=== PATIENT | male | born 1955 | race Caucasian/White ===

== ENCOUNTER → 2020-03-18 13:51 | Outpatient (BNVA) | payer MEDICARE, MEDICAID, SELFPAY | PROVIDERS: PCP Family Medicine; Visit Provider Family Medicine | DX: K62.5 Hemorrhage of anus and rectum (principal); N49.2 Inflammatory disorders of scrotum; R19.7 Diarrhea, unspecified | CPT/HCPCS: G0328 ==

== ENCOUNTER → 2020-03-30 14:33 | Outpatient (BNVA) | payer MEDICARE, SELFPAY | PROVIDERS: PCP Family Medicine; Visit Provider Nurse Practitioner Family | DX: R10.9 Unspecified abdominal pain (principal); R14.0 Abdominal distension (gaseous) | CPT/HCPCS: 74018; 80053; 81000; 85025 ==

== ENCOUNTER 2020-04-02 12:40 | Outpatient (CLI) | payer MEDICARE, SELFPAY ==
--- NOTE | 2020-04-02 12:49 | XRR_ITS ---
PROCEDURE INFORMATION: Exam: XR Left Ribs Exam date and time: 04/02/2020 12:49 PM Age: 64 years old Clinical indication: Prior surgery; Surgery type: Gb, pacemaker, stents; Patient HX: Left rib pain, mid to lower posterior, felt pop while stretching and lifting an object; Additional info: Rib pain, pop noise in rib TECHNIQUE: Imaging protocol: XR Left ribs. Views: 2 views. COMPARISON: No relevant prior studies available. FINDINGS: Tubes, catheters and devices: Pacemaker Bones/joints: Degenerative changes left glenohumeral joint. Rather severe. No clearly visualized rib fracture. Pacemaker limits this exam slightly. Soft tissues: Normal. XR/XR ribs LT 2V* [id number] IMPRESSION: No clearly visualized rib fracture. Pacemaker limits this exam slightly.
== END 2020-04-02 12:41 | disposition home or self-care (01) ==
LOC: RADWPI 12:46
PROVIDERS: PCP Family Medicine; Visit Provider Nurse Practitioner Family
DX: R07.81 Pleurodynia (principal)
CPT/HCPCS: 71100

== ENCOUNTER → 2020-05-17 12:30 | Outpatient (BNVA) | payer MEDICARE, MEDICAID, SELFPAY | PROVIDERS: PCP Family Medicine; Referring Provider Nurse Practitioner Family; Visit Provider Internal Medicine Cardiovascular Disease | DX: E78.5 Hyperlipidemia, unspecified (principal); I11.0 Hypertensive heart disease with heart failure; I50.33 Acute on chronic diastolic (congestive) heart failure; R06.02 Shortness of breath; I35.0 Nonrheumatic aortic (valve) stenosis; I25.5 Ischemic cardiomyopathy; I25.10 Atherosclerotic heart disease of native coronary artery without angina pectoris; I48.91 Unspecified atrial fibrillation; Z95.810 Presence of automatic (implantable) cardiac defibrillator; F17.210 Nicotine dependence, cigarettes, uncomplicated | CPT/HCPCS: 80048; 80061; 80076; 83880; 84439; 84443 ==

== ENCOUNTER 2020-06-01 15:06 | Outpatient (CLI) | payer MEDICARE, SELFPAY ==
--- NOTE | 2020-06-01 15:14 | USCV_ITS ---
Italo Ruht Age: 64 Gender: M : 1955 Exam Date: 06/01/2020 15:32 Ordering Phys: Juan Cagle MD ([email or web address]) Technologist: Ruby Man [place] [facility] [place]ication: CARDIOMYOPATHY BP: / HR: 67 Rhythm: Sinus Technical Quality: Adequate MEASUREMENTS (Male / Female) Normal Values 2D ECHO LV Diastolic Diameter PLAX 6.3 cm 4.2 - 5.9 / 3.9 - 5.3 cm LV Systolic Diameter PLAX 5.9 cm LV Chamber Size 4.6 cm IVS Diastolic Thickness 1.7 cm 0.6 - 1.0 / 0.6 - 0.9 cm IVS Systolic Thickness 2.3 cm LVPW Diastolic Thickness 1.2 cm 0.6 - 1.0 / 0.6 - 0.9 cm LVPW Systolic Thickness 1.1 cm RV Chamber Size 3.1 cm LVOT Diameter 2.1 cm LV Ejection Fraction 2D Teich 12.9 % LV Ejection Fraction MOD 2C 37.7 % LV Ejection Fraction 2C AL 38.9 % LA Diameter 4.7 cm LA Width 3.1 cm LA Height 4.5 cm RA Width 3.0 cm RA Height 3.9 cm Aorta at Sinotubular Diameter 3.5 cm M-MODE LV Diastolic Diameter MM 6.9 cm 4.2 - 5.9 / 3.9 - 5.3 cm LV Systolic Diameter MM 6.0 cm LV Ejection Fraction MM Teich 26.6 % IVS Diastolic Thickness MM 0.9 cm 0.6 - 1.0 / 0.6 - 0.9 cm IVS Systolic Thickness MM 1.2 cm LVPW Diastolic Thickness MM 1.3 cm 0.6 - 1.0 / 0.6 - 0.9 cm LVPW Systolic Thickness MM 1.5 cm RV Diastolic Diameter MM 0.8 cm Aortic Annulus Diameter 3.5 cm LA Ao Ratio MM 1.3 MV E Point Septal Separation 1.1 cm DOPPLER AV Peak Velocity 125.0 cm/s LVOT Peak Velocity 60.0 cm/s AV Area Cont Eq vti 1.7 cm squared AV Area Cont Eq pk 1.6 cm squared MV Area PHT 4.2 cm squared Mitral E to A Ratio 0.6 MV E' Velocity 6.0 cm/s Mitral E to MV E' Ratio 6.7 Mitral E to LV E' Lateral Ratio 6.4 Mitral E to LV E' Septal Ratio 7.2 TR Peak Velocity 242.5 cm/s TR Peak Gradient 23.5 mmHg TR Mean Velocity 154.1 cm/s TR Mean Gradient 11.2 mmHg TR Velocity Time Integral 43.0 cm TV Peak E Velocity 52.0 cm/s Right Atrial Pressure 3.0 mmHg Pulmonary Artery Systolic Pressu 26.5 mmHg PV Peak Velocity 77.0 cm/s RV Acceleration Time 0.1 s RV Ejection Time 0.3 s RV AcT/ET 0.3 FINDINGS Left Ventricle Severe diffuse hypokinesia of the left ventricle with ejection fraction around 25 to 30%. Mildly dilated left ventricle Right Ventricle Normal RV size with a slightly diminished ejection fraction Right Atrium The right atrium is normal in size. Left Atrium Mildly increased left atrial size. Mitral Valve Thickened mitral valve. Mild mitral annular calcification. Mild mitral valve regurgitation. Aortic Valve Thickened aortic valve. Tricuspid Valve Trace tricuspid valve regurgitation. Pulmonic Valve Pulmonic valve not well visualized. Pericardium Normal pericardium without effusion. Aorta Normal ascending aorta dimension. CONCLUSIONS Severe diffuse hypokinesia of the left ventricle with ejection fraction around 25 to 30%. Mildly dilated LV cavity. Mildly increased left atrial size. Thickened mitral valve. Mild mitral annular calcification. Mild mitral valve regurgitation. Thickened aortic valve. Trace tricuspid valve regurgitation. There is no pericardial effusion. There are no intracardiac masses. Compared to the previous study from 11/30/2015, there is worsening of the LV systolic function Dr Juan Cagle MD [facility] (Electronically Signed) Final Date: 02 June 2020 00:02 S
== END 2020-06-01 15:07 | disposition home or self-care (01) ==
PROVIDERS: PCP Family Medicine; Visit Provider Internal Medicine Cardiovascular Disease
DX: I25.5 Ischemic cardiomyopathy (principal); I08.3 Combined rheumatic disorders of mitral, aortic and tricuspid valves
CPT/HCPCS: 93306

== ENCOUNTER 2020-06-04 09:49 | Outpatient (CLI) | payer MEDICARE, SELFPAY ==
--- NOTE | 2020-06-04 09:51 | CT_ITS ---
WS: [id number] LDCT LUNG CANCER SCREENING TECHNIQUE: Noncontrast CT of the chest with coronal and sagittal reformatted images. CLINICAL INFORMATION: HX OF TOBACCO USE COMPARISON: None. DLP: 55.27 mGy.cm DIvol: 1.[address] scans at [facility] use at least one of these dose optimization techniques: automat ed exposure control; mA and/or kV adjustment per patient size (includes targeted exams where dose is matched to clinical indication); or iterative reconstruction. FINDINGS: Some images degraded by motion. Mild chronic emphysematous changes. No acute pulmonary infiltrates. Slight atelectasis in the lung ba ses. No mediastinal or hilar lymphadenopathy. Coronary calcification. No axillary lymphadenopathy. Ad renal glands are normal. Small esophageal hiatal hernia. Hypertrophic changes thoracic spine. CT/CT lung screening [id number] IMPRESSION: LUNG-RADS: 1-Negative FOLLOW UP: 12 Month: Continue annual screening with LDCT
== END 2020-06-04 09:50 | disposition home or self-care (01) ==
LOC: CT 09:50
PROVIDERS: PCP Family Medicine; Visit Provider Nurse Practitioner Family
DX: Z12.2 Encounter for screening for malignant neoplasm of respiratory organs (principal); Z87.891 Personal history of nicotine dependence
CPT/HCPCS: G0297

== ENCOUNTER → 2020-11-22 09:17 | Outpatient (BNVA) | payer MEDICARE, MEDICAID, SELFPAY | PROVIDERS: PCP Family Medicine; Visit Provider Nurse Practitioner Family | DX: E78.5 Hyperlipidemia, unspecified (principal); I25.10 Atherosclerotic heart disease of native coronary artery without angina pectoris; I25.5 Ischemic cardiomyopathy; I48.91 Unspecified atrial fibrillation; Z95.810 Presence of automatic (implantable) cardiac defibrillator | CPT/HCPCS: 80048; 83880 ==

== ENCOUNTER → 2020-12-07 09:00 | Outpatient (BNVA) | payer MEDICARE, MEDICAID, SELFPAY | PROVIDERS: PCP Family Medicine; Visit Provider Internal Medicine Cardiovascular Disease | DX: I25.5 Ischemic cardiomyopathy (principal); R79.89 Other specified abnormal findings of blood chemistry; E78.5 Hyperlipidemia, unspecified; I25.10 Atherosclerotic heart disease of native coronary artery without angina pectoris; I10 Essential (primary) hypertension | CPT/HCPCS: 80048; 83880 ==

== ENCOUNTER → 2021-04-28 15:15 | Outpatient (BNVA) | payer MEDICARE, MEDICAID, SELFPAY | PROVIDERS: PCP Family Medicine; Visit Provider Internal Medicine Cardiovascular Disease | DX: E78.5 Hyperlipidemia, unspecified (principal); I50.33 Acute on chronic diastolic (congestive) heart failure; R06.02 Shortness of breath; Z95.0 Presence of cardiac pacemaker; I35.0 Nonrheumatic aortic (valve) stenosis; I25.5 Ischemic cardiomyopathy; I25.10 Atherosclerotic heart disease of native coronary artery without angina pectoris; R07.9 Chest pain, unspecified | CPT/HCPCS: 80048; 83880 ==

== ENCOUNTER → 2021-05-12 13:28 | Outpatient (BNVA) | payer MEDICARE, MEDICAID, SELFPAY | PROVIDERS: PCP Family Medicine; Visit Provider Nurse Practitioner Family | DX: I48.91 Unspecified atrial fibrillation (principal); I10 Essential (primary) hypertension; I25.10 Atherosclerotic heart disease of native coronary artery without angina pectoris; E78.5 Hyperlipidemia, unspecified; Z95.0 Presence of cardiac pacemaker; L72.9 Follicular cyst of the skin and subcutaneous tissue, unspecified; Z68.36 Body mass index [BMI] 36.0-36.9, adult | CPT/HCPCS: 80053; 80061; 83735; 84439; 84443; 85025 ==

== ENCOUNTER 2021-06-03 07:09 | Outpatient (CLI) | payer MEDICARE, SELFPAY ==
[2021-06-03 07:30] VITALS: BMI 36.2
--- NOTE | 2021-06-03 07:30 | ECG_ITS ---
[facility] Test Date: 2021-06-03 Pat Name: Italo Ruth Department: Room: Gender: Male Insurance Underwriter: : 1955 Requested By: Juan Cagle Order Number: [id number] Abraham MD: Juan Cagle M.D. Interpretive Statements NAME OF STUDY: LEXISCAN SESTAMIBI STRESS TEST INDICATION: Heart disease, PROCEDURE: At the baseline, the EKG revealed normal sinus rhythm with diffuse nonspecific T wave changes. Features of old inferior wall myocardial infarction.. The baseline blood pressure was 144/83 mm Hg with a heart rate of 62 beats/min. Lexiscan was infused over a period of 20 seconds. A total of 0.4 milligrams of Lexiscan was infused. The stress phase was continued for a total of 5 minutes. Heart rate at the end of the stress phase was 72 with a blood pressure 103/77. The EKG at the peak infusion revealed no significant changes. Sestamibi was injected 20 seconds after the Lexiscan infusion. Blood pressure at the end of the recovery phase was 119/64 with a heart rate of 70 per minute. CONCLUSION: 1. No significant EKG changes with the LexiScan infusion 2. No LexiScan induced chest pain or cardiac arrhythmia 3. Normal blood pressure and heart rate response 4. Sestamibi/sestamibi perfusion scan pending; see separate report. Electronically Signed On 06-03-2021 17:01:47 CDT by Juan Cagle M.D. [id number]
--- NOTE | 2021-06-03 07:30 | NMCV_ITS ---
NM chas perf SPECT r/s* [id number] Italo Ruth Age: 65 Gender: M : 1955 Exam Date: 06/03/2021 08:20 Ordering Phys: Juan Cagle MD ([email or web address]) Technologist: GORGE Tyler Exam Location: [facility] Indications: HEART DISEASE STRESS TEST Please see separate stress test report in [facility] for full findings IMAGE PROTOCOL Rest/Stress 1 Lexiscan Day Radiopharmaceutical Dose (mCi) Administration Site Administered by Rest: Tc-99m 10.6 IV GORGE [place] Sestamibi Stress:Tc-99m 32.7 IV GORGE [place] Sestamibi Rest: 03-Jun-2021 60 Discovery 630 Stress: 03-Jun-2021 30 Discovery 630 0.4mg Lexiscan. Images obtained in supine and prone position. SPECT RESULTS Technical Quality: Excellent Raw Data Analysis: Normal Image Corrections: No attenuation or motion correction applied Summed Stress Score: 31 Summed Rest Score: 24 Summed Difference Score: 7 PERFUSION FINDINGS Area of severely decreased tracer uptake in the basal, mid and apical inferior, basal and mid inferolateral, basal and mid inferoseptal, basal anterolateral, apical lateral, apical septal and LV apex. Subtle areas of reversibility was noted in the inferolateral, basal anterolateral and apical segments. FUNCTIONAL RESULTS (calculated via Gated SPECT) Stress Image LV EF (%): 14 Stress EDV (mL):221 TID: 1.05 Stress ESV (mL):190 FUNCTIONAL FINDINGS: Segmental wall motion analysis revealed severe diffuse hypokinesia of the anterior wall, apex, septum and moderate hypokinesia of the inferior wall segments. IMPRESSIONS 1. Myocardial perfusion imaging revealing large areas of severely decreased tracer uptake in the inferior, inferolateral, inferoseptal, apical and the basal anterolateral regions with significant reversibility in the distribution of all the 3 coronary arteries, predominantly in the distribution of the left circumflex artery. 2. Markedly diminished LV ejection fraction of 14%. 3. Multiple wall motion normalities as mentioned above. 4. Markedly dilated LV cavity with an end-systolic volume of 190 mL No similar previous studies are available for comparison Dr Juan Cagle MD [facility] (Electronically Signed) Final Date: 03 June 2021 15:33 S
[2021-06-03] MEDS: regadenoson 0.4 Mg/5 ml Syringe IVP (09:10)
[2021-06-03 09:16] VITALS: BP 119/69; PULSE 69
== END 2021-06-03 07:10 | disposition home or self-care (01) ==
PROVIDERS: PCP Family Medicine; Visit Provider Internal Medicine Cardiovascular Disease
DX: I51.9 Heart disease, unspecified (principal)
CPT/HCPCS: 78452; 93017; A9500; J2785

== ENCOUNTER → 2021-07-08 09:03 | Outpatient (BNVA) | payer MEDICARE, SELFPAY | PROVIDERS: PCP Family Medicine; Visit Provider Internal Medicine Cardiovascular Disease | DX: Z01.818 Encounter for other preprocedural examination (principal); R94.39 Abnormal result of other cardiovascular function study; I48.91 Unspecified atrial fibrillation; I10 Essential (primary) hypertension; I25.10 Atherosclerotic heart disease of native coronary artery without angina pectoris; Z95.0 Presence of cardiac pacemaker; Z20.822 Contact with and (suspected) exposure to COVID-19 | CPT/HCPCS: 80048; 85025; 85610; 86850; 86900; 87635 ==

== ENCOUNTER 2021-07-13 07:49 | Outpatient (CLI) | payer MEDICARE, SELFPAY ==
[2021-07-13] VITALS (18 sets, daily range): BP systolic 86–116; BP diastolic 62–83; PULSE 63–70; RESP 10–21; TEMP 36.1; O2SAT 91–97; BMI 35.8
--- NOTE | 2021-07-13 07:30 | XACV_ITS ---
Exam Room: 1 Ht: 180 cm Wt: 117 kg BSA: 2.46 m2 Gender: Male : 1955 Any Known Allergies: Codeine Exam Priority: Routine Procedure(s): Procedure Description: Diagnostic procedure Procedure Description: Left Heart Catheterization Procedure Description: Coronary Angiography Diagnostic Cath Status: Elective Diagnostic Findings * Coronary angiography shows right dominance. * The left main is a medium caliber vessel with no significant stenotic lesions. * The left anterior descending artery is a medium caliber vessel which was found to have minimal diffuse irregular narrowing proximally. The mid and the distal LAD also were found to have minimal intimal irregularities with no significant stenotic lesions. The first diagonal branch was found to have a proximal stented segment. Mild diffuse in-stent narrowing was noted in this region. No other significant stenotic lesions. * The left circumflex artery is a medium to large caliber vessel. The proximal stented segment was found to be widely patent with minimal in-stent narrowing. The medium to large caliber first obtuse marginal artery was found to have very minimal intimal irregularities with no significant stenotic lesions. The mid circumflex artery right after the first obtuse marginal artery was found to be totally occluded. Grade 2 left to left collaterals were noted. * The right coronary artery is a medium to large caliber vessel with mild diffuse disease in the proximal segment. Right after the first RV branch, the artery appears to be totally occluded. This appears to be a chronic occlusion. * Intermedius artery appears to be totally occluded proximally. Left to left collaterals were noted with relatively small branches of the intermedius artery. Conclusions 1. 65-year-old white male with a history of myocardial infarction and multiple PCI's, now presenting with increasing shortness of breath/weakness and some atypical chest symptoms. Myocardial perfusion may revealing areas of fixed defects with a small areas of reversible defects in the distribution of all the 3 coronary arteries. In view of the abnormal perfusion scan findings and the patients ongoing symptoms with the worsening of the exercise tolerance, in order to further evaluate his coronary status, a repeat cardiac catheterization was recommended. Patient underwent left heart catheterization with left and right coronary angiogram today. The findings are as follows. 2. Left main was found to have no significant lesions. Mild diffuse disease in the left anterior descending artery with a patent stent at the mid segment. Minimal in-stent narrowing. The circumflex artery was found to have a patent stented segment proximally. Mild diffuse disease was noted in the first obtuse marginal artery. The mid circumflex appears to be totally occluded. Grade 2 left to left collaterals were noted. The intermedius artery also was found to be totally occluded with some left to left collaterals. Right coronary artery was found to be totally occluded at the mid segment. Grade 1-2 [id number] collaterals are noted.. Recommendations * Continue current medical management and risk factor modification. Diagnostic RX Recommendation: medical therapy and/or counseling Left Ventriculography Findings: * LV gram was not performed because of the concern about the dye overload. LVEDP was around 18 mmHg. Pressures Phase:Rest AO : 109 / 71 ( 88 ) @ 8:18:00 AM 101 / 68 ( 82 ) @ 8:18:00 AM LV : 101 / 11 / 19 @ 8:16:00 AM 99 / 9 / 18 @ 8:16:00 AM 103 / 14 / 23 @ 8:17:00 AM 104 / 11 / 24 @ 8:18:00 AM Valves Phase:DefaultPhase AV : 0.0 @ 9:31:57 AM AV Mean Gradient: 0.0 @ 9:31:57 AM Clinical Evaluation EBL: 5mL-10mL Procedural Details Procedure Consent Obtained. Identified patient by full name and date of as verbalized by the patient/guarantor. Does the consent match the physician's order: Yes. Accurate & Complete Informed Consent: Yes. Inpatient/Outpatient History & Physical on Chart: Yes. If H&P is completed, is and addenduem needed: No. Relevant Radiology Images available: Yes. Pre-op teaching completed and patient verbalized understanding. The risks, benefits, and alternatives of sedation and/or procedure were discussed by physician. The patient agrees to continue. Procedure started. [facility] Clinical Fraility Score: 4: Vulnerable. Glue Maker Bone Indications: LV Dysfunction, abnormal stress test. Chest Pain Symptom Assessment: Atypical Angina. Cardiovascular Instability: no. Correct patient, site and procedure confirmed by cath team. PERRLA. Strong, equal hand installer apprentice bilaterally. Lungs clear x 5 lobes. IV Site on Arrival: 20 gauge in the left anticubital. Pre Procedural Pulses: right radial was 1+. Pre Procedural Pulses: bilateral dorsalis pedis was 1+. Pre Procedural Pulses: bilateral posterior tibial was Doppled. IV Fluids: 0.9% NaCl at KVO. 0 mL infused prior to laborer plumbing. Oxygen started at 2liters/min via nasal canula. right radial was prepped with chloroprep then draped in the usual sterile fashion. right groin was prepped with chloroprep then draped in the usual sterile fashion. Physician notified. Baseline sample Acquired. HR: 31 BPM. Equipment: 6F - Radial. Cardiac Cath Pack. ACIST Manifold Kit Model BT 2000. Heparinized Saline (2 units/mL), 1000 mL bag. Physician arrived. Physician scrubbed in. Immediate Pre-Procedure Time Out. Correct Patient: Yes; Correct Procedure: Yes; Correct Site: Yes; Correct Patient Position: Yes; Correct Supplies: Yes; Dried Flammable Prep: Yes; Blood Products Available: N/A;. Lidocaine 1% infiltrated to the right radial. Arterial access obtained. A 6 nauruan Curtis catheter in over wire. Multiple views taken of left coronary artery. Catheter redirected to the RCA. Catheter removed over the exchange wire. A 5 nauruan JR4 catheter in over wire. Multiple views taken of right coronary artery. Catheter removed over the exchange wire. A 5 nauruan Angled Pig catheter in over wire. EDP Sample taken: LV 101/11,19; HR: 83 BPM; SpO2: 100%. EDP Sample taken: LV 99/9,18; HR: 75 BPM; SpO2: 100%. EDP Sample taken: LV 103/14,23; HR: 87 BPM; SpO2: 99%. Pullback taken: LV 104/11,24; AO 109/71(88); Mean: 0mmHg, Peak to Peak: 0mmHg, SEP: 9sec/min; HR: 76 BPM; SpO2: 99%. Catheter removed over the exchange wire. Physician scrubbed out. TR band placed. Hemostasis obtained. Post Procedure: Pulses reassessed and unchanged. PERRLA. Strong, equal hand installer apprentice bilaterally. No VTE prophylaxis required. Medication's Wasted: Lidocaine 1% = 18 mL. Medication's Wasted: Nitro = 49.8 mg. Medication's Wasted: Heparin = 1000 u. Medication's Wasted: Other = fentanyl mL. Medication's Wasted: Verapamil = 5 mg. Total IV fluids: 221 mL. Contrast type used: Omnipaque 300 mgI/mL, 500 mL bottle. Post-op diagnosis: cardiomyopathy. Complications: none. Estimated blood loss: 5mL-10mL. A TR Band was successful obtaining hemostatsis at the Right Radial artery insertion site. Patient transferred by wheelchair to CPRU. Procedure completed. Vital chart was stopped. Access Site Site: Right Radial artery Sheath Size: 6 Fr Hemostasis Method: TR Band Hemostasis Success: Successful Procedure Medications Start: 8:57 AM Stop: 8:57 AM Medication: Versed Amount: 1 mg Route: I.V. Start: 8:57 AM Stop: 8:57 AM Medication: Fentanyl Amount: 25 mcg Route: I.V. Start: 9:00 AM Stop: 9:00 AM Medication: 0.9% Saline Amount: 250 ml Route: I.V. bolus Start: 9:02 AM Stop: 9:02 AM Medication: Nitrogylcerin Amount: 200 mcg Route: I.A. Start: 9:06 AM Stop: 9:06 AM Medication: Heparin Amount: 5000 units I, the attending physician, have reviewed and verified all procedure medications. Yes, all medications given per verbal order History/Risk Factors Hypertension: Yes Dyslipidemia: Yes Peripheral Arterial Disease (PAD): No Myocardial Infarction (AL): Yes Obesity: Yes Renal Disease: No Tobacco Use: Current/Recent(w/in 1 year) Prior Interventions PCI: Yes CABG: No Valve Surgery: No Report Signatures Finalized by Dr Juan Cagle MD [facility] on 07/13/2021 05:50 PM
--- NOTE | 2021-07-13 08:35 | W.PM.OPSUD ---
Surgery/Procedure H&P Update DATE OF PROCEDURE: July 13, 2021 DATE H&P PERFORMED: 06/13/21 H&P UPDATE INFORMATION: I have reviewed H&P completed within last 30 days, I have examined patient prior to procedure and No changes to prior documentation PREOP DIAGNOSIS: ASHD PRIMARY INDICATION FOR PROCEDURE: Abnormal myocardial perfusion imaging suggesting ischemia in the distribution of all the 3 coronary arteries; history of PCI of the LAD and circumflex artery PLANNED PROCEDURE: Operation Date: 07/13/21 08:30 Proposed Procedures p Cardiac Catheterization(Left) - Juan Cagle MD PATIENT REASSESSED PRIOR TO SEDATION, WITH NO CHANGE NOTED: Yes PHYSICAL EXAM: alert, oriented x 3, clear to auscultation bilaterally and regular rate & rhythm AIRWAY EVAL/ANESTHESIA PLAN: normal airway, see other exam findings, ASA II, ASA III, Monitored Anesthesia, Local Anesthesia, Risks, benefits & alternatives of sedation and/or procedure discussed and Patient agrees to continue as planned
--- NOTE | 2021-07-13 09:30 | PC.NURSE ---
recovery received pt from central lab technician post diagnostic [facility]. pt alert and oriented x3. tr band in place on right wrist with no hematoma or bleeding noted. distal pulse palpable. pt placed on vitals machine and will be monitored per protocol. pt complains of no pain. pt educated on restrictions of right wrist and acknowledged understanding. will reeducate pt throughout recovery as well. will plan to dc in 3 hrs if tr band removes well.
== END 2021-07-13 13:34 | disposition home or self-care (01) ==
PROVIDERS: PCP Family Medicine; Visit Provider Internal Medicine Cardiovascular Disease
DX: I25.10 Atherosclerotic heart disease of native coronary artery without angina pectoris (principal); I25.82 Chronic total occlusion of coronary artery; Z95.5 Presence of coronary angioplasty implant and graft; I10 Essential (primary) hypertension; E78.5 Hyperlipidemia, unspecified; I25.2 Old myocardial infarction; E66.9 Obesity, unspecified; Z68.35 Body mass index [BMI] 35.0-35.9, adult; Z79.82 Long term (current) use of aspirin; I48.91 Unspecified atrial fibrillation; Z95.0 Presence of cardiac pacemaker; F17.210 Nicotine dependence, cigarettes, uncomplicated
CPT/HCPCS: 36415; 93452; C1769; C1887; C1894; J1644; J2250; J3010; J3490; J7030; Q0163; Q9967

== ENCOUNTER → 2021-07-19 14:52 | Outpatient (BNVA) | payer MEDICARE, MEDICAID, SELFPAY | PROVIDERS: PCP Family Medicine; Visit Provider Nurse Practitioner Family | DX: I25.10 Atherosclerotic heart disease of native coronary artery without angina pectoris (principal) | CPT/HCPCS: 80048 ==

== ENCOUNTER → 2021-08-04 08:52 | Outpatient (BNVA) | payer MEDICARE, MEDICAID, SELFPAY | PROVIDERS: PCP Family Medicine; Visit Provider Dermatology | DX: Z01.812 Encounter for preprocedural laboratory examination (principal); Z20.822 Contact with and (suspected) exposure to COVID-19 | CPT/HCPCS: 87635 ==

== ENCOUNTER → 2021-11-21 10:08 | Outpatient (BNVA) | payer MEDICARE, MEDICAID, SELFPAY | PROVIDERS: PCP Family Medicine; Visit Provider Nurse Practitioner Family | DX: E78.5 Hyperlipidemia, unspecified (principal); I10 Essential (primary) hypertension; I48.91 Unspecified atrial fibrillation; R06.02 Shortness of breath | CPT/HCPCS: 80053; 80061; 85610 ==

== ENCOUNTER → 2022-03-03 12:03 | Outpatient (BNVA) | payer MEDICARE, MEDICAID, SELFPAY | PROVIDERS: PCP Family Medicine; Visit Provider Nurse Practitioner Family | DX: I48.91 Unspecified atrial fibrillation (principal) | CPT/HCPCS: 85610 ==

== ENCOUNTER → 2022-03-23 09:07 | Outpatient (BNVA) | payer OTHER, MEDICAID, MEDICARE, SELFPAY | PROVIDERS: PCP Family Medicine; Visit Provider Nurse Practitioner Family | DX: I48.91 Unspecified atrial fibrillation (principal) | CPT/HCPCS: 85610 ==

== ENCOUNTER → 2022-03-24 10:05 | Outpatient (BNVA) | payer OTHER, MEDICAID, MEDICARE, SELFPAY | PROVIDERS: PCP Family Medicine; Visit Provider Nurse Practitioner Family | DX: I48.91 Unspecified atrial fibrillation (principal); N49.2 Inflammatory disorders of scrotum | CPT/HCPCS: G0103 ==

== ENCOUNTER → 2022-03-30 10:49 | Outpatient (BNVA) | payer OTHER, MEDICAID, MEDICARE, SELFPAY | PROVIDERS: PCP Family Medicine; Visit Provider Nurse Practitioner Family | DX: I48.91 Unspecified atrial fibrillation (principal) | CPT/HCPCS: 85610 ==

== ENCOUNTER 2022-04-17 08:39 | Day surgery (SDC) | payer MEDICARE, MEDICAID, SELFPAY ==
[2022-04-13 11:41] VITALS: BMI 34.8
--- NOTE | 2022-04-17 07:57 | P.HP_ITS ---
Same Day Surgery H&P Indication for Procedure/HPI DATE OF PROCEDURE: April 17, 2022 CHIEF COMPLAINT/INDICATIONFOR SURGICAL PROCEDURE: History of colon polyp PREOP DIAGNOSIS: ASHD PLANNED PROCEDURE: Operation Date: 04/17/22 10:15 Proposed Procedures p Colonoscopy 51186/Z12.11(Not Applicable) - Manan Bean MD Medications/Allergies* Home Medications Medication Instructions Recorded Confirmed Type albuterol 90 mcg/actuation aerosol 90 mcg INHALATION PRN PRN 03/18/20 04/13/22 History inhaler ascorbic acid (vitamin C) 500 mg 500 mg PO DAILY 03/18/20 04/13/22 History capsule diphenhydramine HCl 25 mg capsule 25 mg PO BID 07/13/21 04/13/22 History spironolactone 25 mg tablet 25 mg PO DAILY 08/16/21 04/13/22 History Lactobacillus acidophilus 1,000 mmu cells PO DAILY 11/17/21 04/13/22 History (Acidophilus) furosemide 20 mg tablet (Lasix) 20 mg PO DAILY tab 03/16/22 04/13/22 History trazodone 150 mg tablet See Rx Instructions .ROUTE 03/16/22 04/13/22 History .COMPLEX tab warfarin 1 mg tablet See Rx Instructions .ROUTE 03/16/22 04/13/22 History .COMPLEX tab amiodarone 200 mg tablet 200 mg PO DAILY 04/13/22 04/13/22 History atorvastatin 80 mg tablet 80 mg PO DAILY 04/13/22 04/13/22 History Allergies/Adverse Reactions Allergy/AdvReac Type Severity Reaction Status Date / Time codeine AdvReac ADR-Nausea Verified 04/06/22 13:16 Pertinent History/Comorbid Conditions* Medical History (Updated 04/06/22 @ 14:09 by Manan Bean MD) Atherosclerotic heart disease of [place] coronary artery without angina pectoris The EKG from 05/17/2020 revealed sinus rhythm with right axis deviation. 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 Poor R wave progression. Nonspecific IVCD. Diffuse nonspecific T wave changes. Atrial fibrillation Benign essential HTN BMI 36.0-36.9,adult Bruised rib Dyslipidemia (high LDL; low HDL) Elbow abrasion, infected H/O pilonidal cyst Hematochezia Influenza vaccination declined Ischemic cardiomyopathy Myocardial infarction complications Presence of permanent cardiac pacemaker Rectal bleeding Refused pneumococcal vaccine Surgical History (Updated 07/19/21 @ 14:30 by АНДРЕЙ Youssef) History of colonoscopy History of coronary artery stent placement History of implantable cardioverter-defibrillator (ICD) placement The ICD was interrogated in the office. Function was found to be appropriate with no evidence of any ICD discharges. The device has a DDDR mode Pacemaker S/P cholecystectomy Family History (Updated 06/13/21 @ 10:18 by Sarah Wyatt RN) ALS (amyotrophic lateral sclerosis) Mother CAD (coronary artery disease) Brother Father Clotting disorder Father Denies family history of Diabetes Dementia Chronic kidney disease (CKD) Suicide Anesthesia complication Bleeding disorder Lung disease Cancer Stroke Social History Smoking and tobacco status: current every day smoker cigarettes Packs smoked per day: 1 Alcohol intake: current Alcohol intake frequency: holidays/special occasions only Pertinent Exam Findings alert, oriented x 3, clear to auscultation bilaterally, regular rate & rhythm, operative site marked and procedure specific exam findings Recommendations Surgery/Procedure today Coding Level of Care Code Acute Lockstitch Lining Maker for Yuridia Koehler
[2022-04-17 09:09] VITALS: BP 92/75; PULSE 76; RESP 18; TEMP 36.4; O2SAT 93
[2022-04-17] MEDS: sodium chloride 0.9% 1,000 ML 30 ML IV (09:17)
--- NOTE | 2022-04-17 09:51 | ANES.PREANE2 ---
Pre-Anesthetic Assessment Height/Weight: Height 1.8 m Weight 113.398 kg Temp Pulse Resp BP Pulse Ox 97.5 F L 76 18 92/75 93 04/17/22 09:09 04/17/22 09:09 04/17/22 09:09 04/17/22 09:09 04/17/22 09:09 Preop Diagnosis: h/o polyps Operation Date: 04/17/22 10:15 Proposed Procedures p Colonoscopy 47855/Z12.11(Not Applicable) - Manna Bean MD Familial anesthetic complications: none Was Beta Gladis taken within 24 hours: Yes Was Clonidine taken within 24 hours: N/A Last intake: Intake Last Liquid Date 04/16/22 Last Liquid Time 23:30 Last Solid Date 04/15/22 Last Solid Time 17:00 Social Tobacco and No alcohol Exam alert, oriented x 3 and regular rate & rhythm Airway Submandibular: within normal limits Cervical ROM: within normal limits Mallampati: Class II Dentition: false CV/HEM Arrythmia, Coronary Artery Disease and Hypertension AICD Metabolic Hyperlipidemia and Morbid Obesity Anesthetic Plan ASA status: 3 Anesthesia: MAC Medications/Allergies Home Medications Medication Instructions Recorded Confirmed Last Taken Type albuterol 90 mcg/actuation aerosol 90 mcg INHALATION PRN PRN 03/18/20 04/13/22 04/16/22 History inhaler ascorbic acid (vitamin C) 500 mg 500 mg PO DAILY 03/18/20 04/13/22 04/16/22 History capsule aspirin 81 mg tablet,delayed 81 mg PO DAILY #90 tab 05/24/20 04/13/22 04/14/22 Rx release (Adult Aspirin Regimen) magnesium 250 mg tablet 250 mg PO DAILY #90 tab 05/12/21 04/13/22 04/16/22 Rx diphenhydramine HCl 25 mg capsule 25 mg PO BID 07/13/21 04/13/22 04/16/22 History spironolactone 25 mg tablet 25 mg PO DAILY 08/16/21 04/13/22 04/16/22 History nitroglycerin 0.4 mg sublingual See Rx Instructions .ROUTE 08/18/21 04/17/22 2 Years Ago Rx tablet .COMPLEX #50 tab ~04/17/20 Lactobacillus acidophilus 1,000 mmu cells PO DAILY 11/17/21 04/13/22 04/16/22 History (Acidophilus) carvedilol 6.25 mg tablet 6.25 mg PO BID 90 Days #180 tab 11/21/21 04/13/22 04/16/22 Rx potassium chloride 20 mEq 20 meq PO DAILY PRN 90 Days #90 tab 11/21/21 04/13/22 04/14/22 Rx tablet,extended release warfarin 3 mg tablet 3 mg PO .last morris #90 tab 11/21/21 04/13/22 04/10/22 Rx budesonide 160 mcg-glycopyr 9 2 inh INHALATION BID #10.7 g 03/03/22 04/13/22 04/16/22 Rx mcg-formot 4.8 mcg/actuation HFA inhaler (Breztri Aerosphere) furosemide 20 mg tablet (Lasix) 20 mg PO DAILY tab 03/16/22 04/13/22 04/16/22 History trazodone 150 mg tablet 150 mg PO BEDTIME tab 03/16/22 04/17/22 04/16/22 History warfarin 1 mg tablet See Rx Instructions .ROUTE 03/16/22 04/13/22 04/10/22 History .COMPLEX tab sacubitril 24 mg-valsartan 26 mg 1 tab PO BID #180 tab 03/27/22 04/13/22 04/16/22 Rx tablet (Entresto) amiodarone 200 mg tablet 200 mg PO DAILY 04/13/22 04/13/22 04/16/22 History atorvastatin 80 mg tablet 80 mg PO DAILY 04/13/22 04/13/22 04/16/22 History Allergies Allergy/AdvReac Type Severity Reaction Status Date / Time codeine AdvReac ADR-Nausea Verified 04/06/22 13:16 Current Medications Generic Name Dose Route Start Last Admin Trade Name Freq PRN Reason Stop Dose Admin Sodium Chloride 1,000 mls @ 30 mls/hr 04/17/22 09:00 04/17/22 09:17 Sodium Chloride 0.9% IV 30 mls/hr .Q24H RON Administration PFSH Anesthesia Medical History Atherosclerotic heart disease of [place] coronary artery without angina pectoris The EKG from 05/17/2020 revealed sinus rhythm with right axis deviation. 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 Poor R wave progression. Nonspecific IVCD. Diffuse nonspecific T wave changes. Atrial fibrillation Benign essential HTN BMI 36.0-36.9,adult Bruised rib Dyslipidemia (high LDL; low HDL) Elbow abrasion, infected H/O pilonidal cyst Hematochezia Influenza vaccination declined Ischemic cardiomyopathy Myocardial infarction complications Presence of permanent cardiac pacemaker Rectal bleeding Refused pneumococcal vaccine Surgical History History of colonoscopy History of coronary artery stent placement History of implantable cardioverter-defibrillator (ICD) placement The ICD was interrogated in the office. Function was found to be appropriate with no evidence of any ICD discharges. The device has a DDDR mode Pacemaker S/P cholecystectomy Family History Brother CAD (coronary artery disease) Father CAD (coronary artery disease) Clotting disorder Mother ALS (amyotrophic lateral sclerosis) Denies family history of Diabetes Dementia Chronic kidney disease (CKD) Suicide Anesthesia complication Bleeding disorder Lung disease Cancer Stroke Social History (Updated 04/06/22 @ 13:23 by Magi Jones) Smoking and tobacco status: current every day smoker cigarettes Packs smoked per day: 1 Alcohol intake: current Alcohol intake frequency: holidays/special occasions only Data Anesthesia Cardiac Studies: Echocardiogram Ultrasound 06/01/20 Sestamibi Stress Test (Cardiology) 06/03/21
[2022-04-17 10:52] VITALS: PULSE 67; RESP 16; TEMP 36.1; O2SAT 93
[2022-04-17 11:05] VITALS: BP 86/58; PULSE 57; RESP 18; O2SAT 94
--- NOTE | 2022-04-17 13:53 | ANE.PACU2 ---
Inpatient post-anesthesia follow up: Airway intact: Yes Vital signs: Temperature 97.0 F Pulse Rate 57 Respiratory Rate 18 Blood Pressure 86/58 Pulse Oximetry 94 Oxygen Delivery Me thod Room Air Oxygen Flow Rate 3 Fraction of Inspir ed Oxygen Hydration adequate: Yes Nausea and vomiting: No Pain level: 1 Mental status: Baseline
== END 2022-04-17 11:30 | disposition home or self-care (01) ==
PROVIDERS: PCP Family Medicine; Visit Provider Internal Medicine
PROC: 0DJD8ZZ Inspection of Lower Intestinal Tract, Via Natural or Artificial Opening Endoscopic (ICD-10-PCS; CPT 45378; principal; 2022-04-17 10:15)
DX: Z12.11 Encounter for screening for malignant neoplasm of colon (principal); K57.30 Diverticulosis of large intestine without perforation or abscess without bleeding; I25.10 Atherosclerotic heart disease of native coronary artery without angina pectoris; I48.91 Unspecified atrial fibrillation; I10 Essential (primary) hypertension; E78.5 Hyperlipidemia, unspecified; I25.2 Old myocardial infarction; Z95.0 Presence of cardiac pacemaker; F17.210 Nicotine dependence, cigarettes, uncomplicated; E66.01 Morbid (severe) obesity due to excess calories; Z68.34 Body mass index [BMI] 34.0-34.9, adult; Z95.5 Presence of coronary angioplasty implant and graft; Z82.49 Family history of ischemic heart disease and other diseases of the circulatory system
CPT/HCPCS: 45378; J2704; J7030

== ENCOUNTER → 2022-05-23 15:11 | Outpatient (BNVA) | payer MEDICARE, SELFPAY | PROVIDERS: PCP Family Medicine; Visit Provider Internal Medicine Cardiovascular Disease | DX: R94.39 Abnormal result of other cardiovascular function study (principal); I25.10 Atherosclerotic heart disease of native coronary artery without angina pectoris; R06.02 Shortness of breath; I50.33 Acute on chronic diastolic (congestive) heart failure; Z95.810 Presence of automatic (implantable) cardiac defibrillator; E78.5 Hyperlipidemia, unspecified; I25.5 Ischemic cardiomyopathy; I48.91 Unspecified atrial fibrillation; I10 Essential (primary) hypertension | CPT/HCPCS: 36415; 80048; 83880 ==

== ENCOUNTER → 2022-06-12 08:51 | Outpatient (BNVA) | payer MEDICARE, SELFPAY | PROVIDERS: PCP Family Medicine; Visit Provider Nurse Practitioner Family | DX: I25.10 Atherosclerotic heart disease of native coronary artery without angina pectoris (principal); I25.5 Ischemic cardiomyopathy; I48.91 Unspecified atrial fibrillation; N49.2 Inflammatory disorders of scrotum; I10 Essential (primary) hypertension | CPT/HCPCS: 80048; 83880; G0103 ==

== ENCOUNTER → 2022-12-25 09:00 | Outpatient (BNVA) | payer MEDICARE, SELFPAY | PROVIDERS: PCP Family Medicine; Visit Provider Nurse Practitioner Family | DX: I10 Essential (primary) hypertension (principal) | CPT/HCPCS: 80053; 80061; 84443 ==

== ENCOUNTER → 2023-01-18 15:01 | Outpatient (BNVA) | payer MEDICARE, SELFPAY | PROVIDERS: PCP Family Medicine; Visit Provider Nurse Practitioner Family | DX: I11.0 Hypertensive heart disease with heart failure (principal); I50.9 Heart failure, unspecified; I25.10 Atherosclerotic heart disease of native coronary artery without angina pectoris; F17.210 Nicotine dependence, cigarettes, uncomplicated; Z79.82 Long term (current) use of aspirin; Z95.810 Presence of automatic (implantable) cardiac defibrillator | CPT/HCPCS: 99214 ==

== ENCOUNTER → 2023-02-09 16:34 | Outpatient (BNVA) | payer MEDICARE, SELFPAY | PROVIDERS: PCP Family Medicine; Visit Provider Nurse Practitioner Family | DX: B35.1 Tinea unguium (principal) | CPT/HCPCS: 80053 ==

== ENCOUNTER → 2023-05-23 16:00 | Outpatient (BNVA) | payer MEDICARE, SELFPAY | PROVIDERS: PCP Family Medicine; Visit Provider Internal Medicine Cardiovascular Disease | DX: Z45.02 Encounter for adjustment and management of automatic implantable cardiac defibrillator (principal) | CPT/HCPCS: 93296 ==